=== PATIENT | female | born 1975 | race Two or more races ===

== ENCOUNTER 2022-10-06 20:42 | Emergency (ER) | payer OTHER ==
[~2022-10-06] VITALS: Ht 162.6 cm; Wt 97.7 kg
[2022-10-06] MEDS ORDERED: CHL25 PO (20:57)
[2022-10-06] MEDS ORDERED: ASPI-1450 PO (20:57)
[2022-10-06] MEDS ORDERED: ATOR40TA28 PO (20:57)
[2022-10-06] MEDS ORDERED: HYDR25TA84 PO (20:57)
[2022-10-06] MEDS ORDERED: INSLAN SQ (20:57)
[2022-10-06] MEDS ORDERED: GABA-1216 PO (20:57)
[2022-10-06] MEDS ORDERED: INSNOV SQ (20:57)
[2022-10-06] MEDS ORDERED: METF-1211 PO (20:57)
[2022-10-06] MEDS ORDERED: VALS160T2 PO (20:57)
[2022-10-06] MEDS ORDERED: DiphenhydrAMINE HCL 50 MG/ML VIAL IM ONE (21:15)
[2022-10-06] MEDS ORDERED: PredniSONE 20 MG TABLET PO ONE (21:15)
[2022-10-06 21:45] VITALS: BP 147/88
[2022-10-06] MEDS ORDERED: ACETAMINOPHEN/CODEINE 300-30 MG TABLET PO ONE (22:15)
[2022-10-06] MEDS ORDERED: DIPH50CA37 PO ×2 (22:16→22:22)
[2022-10-06] MEDS ORDERED: ACET-2080 PO ×2 (22:16→22:22)
[2022-10-06] MEDS ORDERED: NAPH15DR75 OD ×2 (22:16→22:22)
== END 2022-10-06 22:40 | disposition home or self-care (01) ==
LOC: EMS 20:46
DX: T78.40XA Allergy, unspecified, initial encounter (principal); H10.9 Unspecified conjunctivitis; E11.9 Type 2 diabetes mellitus without complications; I10 Essential (primary) hypertension; X58.XXXA Exposure to other specified factors, initial encounter
CPT/HCPCS: 99283; 96372; J1200; J7512

== ENCOUNTER 2024-06-23 11:27 | Emergency (ER) | payer OTHER ==
[~2024-06-23] VITALS: Ht 165.1 cm; Wt 81.8 kg
[~2024-06-23 11:27] MED LIST: ACET-2080 PO; ASPI-1450 PO; ATOR40TA28 PO; CHL25 PO; DIPH50CA37 PO; GABA-1216 PO; HYDR25TA84 PO; INSLAN SQ; INSNOV SQ; METF-1211 PO; NAPH15DR75 OD; VALS160T2 PO
[2024-06-23 11:41] VITALS: TEMP 98.6
[2024-06-23 12:02] LABS: COVID AG,FIA SOURCE NASAL SWAB
[2024-06-23 12:46] LABS: INFLUENZA TYPE A NEGATIVE FOR TYPE A (NEGATIVE); INFLUENZA TYPE B NEGATIVE FOR TYPE B (NEGATIVE); SARS-COV2 (COVID) ANTIGEN,FIA Negative (Negative)
[2024-06-23] MEDS ORDERED: AZIT250T9 PO (14:31)
[2024-06-23 14:46] VITALS: BP 135/82; PULSE 80; RESP 16; O2SAT 100
== END 2024-06-23 14:56 | disposition home or self-care (01) ==
LOC: EMS 11:27
DX: J98.4 Other disorders of lung (principal); R05.9 Cough, unspecified; E11.9 Type 2 diabetes mellitus without complications; I10 Essential (primary) hypertension; Z79.4 Long term (current) use of insulin; Z79.82 Long term (current) use of aspirin; Z79.84 Long term (current) use of oral hypoglycemic drugs; Z79.899 Other long term (current) drug therapy; Z20.822 Contact with and (suspected) exposure to COVID-19
CPT/HCPCS: 87804; 99283